=== PATIENT | female | born 1980 | race Caucasian/White ===

== ENCOUNTER 2016-12-05 06:03 | Day surgery (SDC) | payer OTHER ==
[~2016-12-05] VITALS: Ht 157.5 cm; Wt 51.0 kg
[2016-12-05] VITALS (12 sets, daily range): BP systolic 111–138; BP diastolic 71–87; PULSE 50–62; RESP 18–40; Ht 157.5 cm; Wt 51.0 kg
[2016-12-05] MEDS ORDERED: BUPIVACAINE 0.25%/EPI (SDV) 30 ML INJ ONE (06:42)
[2016-12-05 06:43] LABS: ADD SCAN DIFF NO
[2016-12-05 06:53] LABS: BASOPHILS % 0.7 % (0.0-2.0); EOSINOPHILS # 0.1 10^3/ul (0.0-0.5); EOSINOPHILS % 3.2 % (0.0-7.0); HEMATOCRIT 38.8 % (37.0-47.0); HEMOGLOBIN 12.9 g/dl (12.0-16.0); LYMPHOCYTES # 1.4 10^3/ul (0.8-2.9); LYMPHOCYTES % 32.8 % (15.0-51.0); MEAN CORPUSCULAR HEMOGLOBIN 31.7 pg (29.0-33.0); MEAN CORPUSCULAR HGB CONC 33.2 g/dl (32.0-37.0); MEAN CORPUSCULAR VOLUME 95.3 fl (82.0-101.0); MEAN PLATELET VOLUME 11.6 fl (7.4-10.4); MONOCYTE # 0.4 10^3/ul (0.3-0.9); MONOCYTES % 8.7 % (0.0-11.0); NEUTROPHIL # 2.4 10^3/ul (1.6-7.5); NEUTROPHILS % 54.4 % (39.0-77.0); PLATELET COUNT 194 10^3/UL (140-415); RED BLOOD COUNT 4.07 10^6/ul (4.20-5.40); RED CELL DISTRIBUTION WIDTH 13.9 % (11.5-14.5); WHITE BLOOD COUNT 4.4 10^3/ul (4.8-10.8)
[2016-12-05] MEDS ORDERED: SUCCINYLCHOLINE CHLORIDE 100 MG/5 ML SYG IV ONE (07:00)
[2016-12-05] MEDS ORDERED: PROPOFOL 20 ML ONE (07:00)
[2016-12-05] MEDS ORDERED: LIDOCAINE 2% (SDV) 5 ML INJ ONE (07:00)
[2016-12-05] MEDS ORDERED: MIDAZOLAM 1 MG/ML 2 ML INJ ONE (07:01)
[2016-12-05] MEDS ORDERED: ONDANSETRON 4 MG INJ ONE (07:03)
[2016-12-05] MEDS ORDERED: DEXAMETHASONE 4 MG/ML 1 ML INJ ONE (07:04)
[2016-12-05 07:11] LABS: INR 0.94; PROTIME 12.6 Sec (12.2-14.2)
[2016-12-05 07:12] LABS: PARTIAL THROMBOPLASTIN TIME 28.9 Sec (25.0-35.0)
[2016-12-05] MEDS ORDERED: CEFAZOLIN 1 GM INJ ONE (08:13)
[2016-12-05] MEDS ORDERED: HYDROmorphONE 2 MG/ML SYG ONE (08:13)
[2016-12-05] MEDS ORDERED: OCULAR LUBRICANT 3.5 GM OPH OINT ONE (08:19)
[2016-12-05] MEDS ORDERED: LACTATED RINGER'S 1,000 ML IV* SCH (08:30)
[2016-12-05] MEDS ORDERED: CEFAZOLIN 2 GM/50 ML (PMX) 50 ML IVPB SCH (08:30)
--- NOTE | 2016-12-05 09:03 | OPR ---
DATE OF OPERATION: PREOPERATIVE DIAGNOSIS: The patient desires permanent sterilization. POSTOPERATIVE DIAGNOSIS: The patient desires permanent sterilization. OPERATION PERFORMED: Laparoscopic tubal fulguration and transection. SURGEON: Dov Sanchez MD HUMAN RESOURCES OFFICE ASSISTANT: None. ESTIMATED BLOOD LOSS: Minimal. COMPLICATIONS: None. FINDINGS: Normal tubes and ovaries bilaterally, the uterus consisted of multiple small fibroids, ol d fibrosis looked less than 3 cm, but they were scattered throughout the uterus. CONSENT: Please see the preop H and P consent that was done in my office. DESCRIPTION OF PROCEDURE: She was taken to the operating room and general anesthesia was induced. She was prepped and draped in the usual sterile fashion in dorsal lithotomy position. A Guerin ema ter was inserted. Surgical time out was done. The patient and procedure were identified. Anterior lip of the cervix was grasped using a single-toothed tenaculum, the cervix dilated, and then a HUMI was inserted in normal fashion. The tenaculum was removed. There was no bleeding. Gloves were ch anged. 10 mL of 0.25% Marcaine with epinephrine was injected periumbilically in the suprapubic area . A small periumbilical incision was developed and blunt trocar was inserted in normal fashion. In traperitoneal position was confirmed using the laparoscope. The patient was placed in the head down position, and under guidance of the laparoscope, a second trocar was inserted above the pubic hairl ine in the midline where local anesthesia was already injected. 5 cm mid ampullary region of the ri ght tube was coagulated, complete desiccation of the entire diameter of the tube was visualized, mid dle of the coagulated portion was cut. There was no bleeding. The same procedure was done on contr alateral side and then pneumoperitoneum released. All instruments removed under direct visualizatio n, and the skin closed using 4-0 Monocryl. The needle was handed back to the manufacturing maintenance technician, and then I injected more local anesthesia, and then I removed the HUMI. At this time, the manufacturing maintenance technician could no t localize the needle, but I was done with the case, and the needle was only used to close the skin, so I knew it could not be inside the patient. Dictated By: DOV JAMES/PAYAL Conf#: [id number] [facility]#: [id number]
[2016-12-05] MEDS ORDERED: ONDANSETRON 4 MG INJ IV PRN (10:00)
[2016-12-05] MEDS ORDERED: HYDROmorphONE (0.2 MG/ML) 10ML SYG IV PRN (10:00)
[2016-12-05] MEDS ORDERED: FENTAnyl 50 MCG/ML VIAL IV PRN (10:00)
--- NOTE | 2016-12-06 15:38 | RADRPT ---
Vent Rate: 58 bpm RR Interval: 0 msec NC Interval: 166 msec QRS Duration: 88 msec QT Interval: 406 msec QTC Interval: 398 msec P-R-T [place]: 59 - 57 - 57 degrees Sinus bradycardia with sinus arrhythmia Inverted T in aVL Otherwise normal ECG Electronically Signed By: Keshawn Felder [id number]
== END 2016-12-05 13:07 | disposition home or self-care (01) ==
LOC: SDS 06:03
PROVIDERS: ATTEND Specialist
DX: Z30.2 Encounter for sterilization (principal)
CPT/HCPCS: 58670; 84703; 85025; 85610; 85730; 93005; J0330; J0690; J1100; J1170; J2250; J2405; J3010; Z7512; Z7610